=== PATIENT | male | born 1950 | race Caucasian/White ===

== ENCOUNTER 2016-09-16 08:53 | Inpatient (IN) | payer BC ==
[~2016-09-16] VITALS: Ht 182.9 cm; Wt 118.8 kg
[~2016-09-16 08:53] MED LIST changes: -ASPI81TA11 PO; -CANA300T PO; -GLIP10TA6 PO; -HYDR-3580 PO; -JANU50TA8 PO; -ROSU1TAB6 PO; -VITACAP9 PO; -WALKER WHEELS/F1 MIS
[2016-09-16] MEDS ORDERED: ROSU1TAB6 PO (09:37)
[2016-09-16] MEDS ORDERED: JANU50TA8 PO (09:37)
[2016-09-16] MEDS ORDERED: GLIP10TA6 PO (09:37)
[2016-09-16] MEDS ORDERED: CANA300T PO (09:37)
[2016-09-16] MEDS ORDERED: VITACAP9 PO (09:38)
[2016-09-26] MEDS ORDERED: METOPROLOL TARTRATE 25 MG TAB PO PRN (07:15)
[2016-09-26] MEDS ORDERED: INSULIN HUMAN REGULAR 1,000 UNITS/10 ML VIAL SQ PRN (07:15)
[2016-09-26] MEDS ORDERED: SODIUM CHLORID 0.9% 500 ML IV SCH (07:15)
[2016-09-26] MEDS ORDERED: LACTATED RINGER'S 1000 ML IV SCH (07:15)
[2016-09-26] MEDS ORDERED: GENTAMICIN SULFATE 80 MG/2 ML VIAL ONE (07:25)
[2016-09-26] MEDS ORDERED: ceFAZolin 2 GM PREMIX 50 ML ONE (07:25)
[2016-09-26 07:27] VITALS: BP 129/80; PULSE 54; RESP 20; TEMP 97.9; O2SAT 97
[2016-09-26] MEDS ORDERED: CLINDAMYCIN PHOS 900 MG/6 ML VIAL ONE (07:27)
[2016-09-26] MEDS ORDERED: SODIUM CHLORIDE 0.9% INJ 100 ML ONE (07:28)
[2016-09-26] MEDS: TRANEXAMIC ACID INJ 1,000 MG in SODIUM CHLORIDE 0.9% INJ 100 ML IV SCH ×6 (07:30→11:22)
[2016-09-26] MEDS: EXPAREL PERI-ARTICULAR INJECTION (TOTAL VOL. 100 ML) P-ARTICULR SCH ×4 (07:30→08:56)
[2016-09-26] MEDS ORDERED: Post-op Orders (for Pharmacy) MISC XX ONE (07:45)
[2016-09-26] MEDS ORDERED: ceFAZolin 2 GM PREMIX 50 ML IV SCH (07:45)
[2016-09-26] MEDS ORDERED: ONDANSETRON HCL 4 MG/2 ML VIAL IVP PRN (07:45)
[2016-09-26] MEDS ORDERED: TRANEXAMIC ACID INJ 0 MG in SODIUM CHLORIDE 0.9% INJ 100 ML IV SCH (07:45)
[2016-09-26] MEDS ORDERED: SODIUM CHLORIDE 0.9% FLUSH 5 ML FLUSH IVF PRN (07:45)
[2016-09-26] MEDS ORDERED: MAGNESIUM HYDROXIDE SUSP 30 ML CUP PO PRN (07:45)
[2016-09-26] MEDS ORDERED: ZOLPIDEM TARTRATE 5 MG TAB PO PRN (07:45)
[2016-09-26] MEDS ORDERED: CLINDAMYCIN INJ 900 MG in SODIUM CHLORIDE 0.9% INJ 100 ML IV SCH (08:00)
[2016-09-26] MEDS ORDERED: ACETAMINOPHEN 1000 MG/100 ML VIAL IV ONE (08:12)
[2016-09-26] MEDS ORDERED: MIDAZOLAM HCL 2 MG/2 ML VIAL ONE (08:12)
[2016-09-26] MEDS ORDERED: NON-FORMULARY DRUG (Canagliflozin (Invokana) 300 MG) PO SCH (09:00)
[2016-09-26] MEDS ORDERED: NON-FORMULARY DRUG (Sitagliptin-Metformin (Janumet) 1 TAB) PO SCH (09:00)
[2016-09-26] MEDS ORDERED: PROPOFOL 200 MG/20 ML AMP IV ONE (12:00)
[2016-09-26] MEDS ORDERED: LACTATED RINGER'S 1000 ML INJ 1,000 ML IV ONE (12:00)
[2016-09-26] MEDS: LACTATED RINGER'S 1000 ML INJ 1,000 ML IV SCH ×2 (12:34→20:07)
[2016-09-26] MEDS ORDERED: BUPIVACAINE LIPOSOME PF 1.3% 20 ML VIAL ONE (12:36)
[2016-09-26] MEDS ORDERED: DO NOT ADM ANY ANTICOAGULANT DRUGS XX PRN (12:45)
[2016-09-26] MEDS ORDERED: MORPHINE SULFATE 4 MG/ML INJ ONE (12:45)
[2016-09-26] MEDS: SODIUM CHLORIDE 0.9% FLUSH 5 ML FLUSH IVF SCH ×2 (13:00→21:00)
[2016-09-26] MEDS ORDERED: KETOROLAC TROMETHAMINE 30 MG/ML (IVP) VIAL ONE (13:09)
[2016-09-26] MEDS: KETOROLAC TROMETHAMINE 30 MG/ML (IVP) VIAL IVP SCH ×2 (13:09→18:32)
--- NOTE | 2016-09-26 13:36 | RADRPT ---
EXAM DATE/TIME: 09/26/2016 12:45 [place] COMPARISON: No previous studies available for comparison. INDICATIONS : Post op total left knee MEDICAL HISTORY : None. SURGICAL HISTORY : Total left knee ENCOUNTER: Initial ACUITY: 1 day PAIN SCORE: 2/10 LOCATION: Left knee FINDINGS: AP and lateral views of the knee following arthroplasty reveals a prosthesis in anatomic alignment. F racture is not appreciated. Surgical drain is evident CONCLUSION: Status post total knee arthroplasty. Ayad Parson MD FACR Board Certified Radiologist. This report was verified electronically.
[2016-09-26 13:40] VITALS: BP 118/67; PULSE 49; RESP 16; TEMP 97.4; O2SAT 99
[2016-09-26] MEDS: MORPHINE SULFATE 4 MG/ML INJ IV PUSH PRN (13:42)
[2016-09-26 16:18] VITALS: O2SAT 99
[2016-09-26 16:20] VITALS: BP 124/70; PULSE 50; RESP 16; TEMP 97.7; O2SAT 98
[2016-09-26] MEDS: glipiZIDE 10 MG TAB PO SCH (16:44)
[2016-09-26] MEDS: CLINDAMYCIN INJ 900 MG in SODIUM CHLORIDE 0.9% INJ 100 ML IV SCH (16:44)
[2016-09-26] MEDS: ACETAMINOPHEN/HYDROcodone 325 MG/7.5 MG TAB PO PRN ×2 (16:45→21:14)
[2016-09-26] MEDS ORDERED: PT JANUMET PO SCH (18:00)
--- NOTE | 2016-09-26 19:50 | PD.CONS ---
HPI Service [facility] Hospitalists Consult Requested By Dr Carrizales Reason for Consult Medical management Primary Care Physician Savage Hair MD Diagnoses: History of Present Illness This is a 66-year-old male with past medical history significant for diabetes, hyperlipidemia, bilateral knee surgery, osteoarthritis who presents to [facility] for elective left total knee arthroplasty. The patient is status post left total knee arthroplasty performed by Dr. Carrizales. The patient complains of left knee pain which radiates at 7, nonradiating. The patient otherwise denies any chest pain shortness of breath, abdominal pain, nausea, vomiting, diarrhea, fevers, chills, cough. Review of Systems Other As per history of present illness, other systems reviewed by me and negative. Past Family Social History Allergies: Coded Allergies: Fabric Softeners (Verified Allergy, Severe, HIVES, 09/16/16) Iodine (Verified Allergy, Severe, Anaphylaxis, 09/16/16) Penicillin (Verified Allergy, Severe, SOB, 09/16/16) Sulfa (Verified Allergy, Severe, SOB, 09/16/16) Shellfish (Verified Adverse Reaction, Severe, Anaphylaxis, 09/16/16) Uncoded Allergies: HAIR CONDITIONER (Adverse Reaction, Severe, HIVES, 09/16/16) Past Medical History 1. Diabetes type 2. 2. Hyperlipidemia. 3. Hypertriglyceridemia. 4. Osteoarthritis Past Surgical History 1. Bilateral knee surgery - 4 in the left knee and to the right knee. 2. Skull fracture. Reported Medications 1. Janumet [id number] milligrams 1 tab by mouth twice a day. 2. Rosuvastatin 10 mg by mouth at at bedtime been 3. B complex 1 By mouth daily. 4. Canaglifozin 300 mg by mouth daily. 5. Glipizide 10 mg by mouth twice a day before meals Active Ordered Medications Current Medications Medications (Trade) Dose Ordered Sig/Annie Route Start Time Stop Time Status Last Admin Chlorhexidine Gluconate 1 applic 1 applic ONCE TOP 09/26/16 07:30 09/29/16 07:29 Tranexamic Acid 1000 mg/Sodium Chloride 110 ml @ 200 mls/hr ONCE IV 09/26/16 07:30 09/27/16 07:29 09/26/16 08:37 Tranexamic Acid 1000 mg/Sodium Chloride 110 ml @ 200 mls/hr ONCE IV 09/26/16 07:30 09/27/16 07:29 09/26/16 11:22 Bupivacaine Liposome 20 ml/ Sodium Chloride 100 ml @ 200 mls/hr ONCE P-ARTICULR 09/26/16 07:30 09/27/16 07:29 09/26/16 08:56 (Lr 1000 ml Inj) 1,000 ml @ 80 mls/hr [id number] IV 09/26/16 07:37 09/26/16 12:34 (NS Flush) 2 ml UNSCH PRN IVF 09/26/16 07:45 IV Flush 2 ml 2 ml BID IVF 09/26/16 09:00 09/26/16 13:00 (Cleocin Inj/NS Inj) 106 ml @ 200 mls/hr Q8H IV 09/26/16 16:00 09/27/16 08:32 09/26/16 16:44 (Morphine Inj) 4 mg Q3H PRN IV PUSH 09/26/16 07:45 09/26/16 13:42 ([place] 7.5-325 Mg) 1 tab Q4H PRN PO 09/26/16 07:45 ([place] 7.5-325 Mg) 2 tab Q4H PRN PO 09/26/16 07:45 09/26/16 16:45 (Toradol Inj) 15 mg Q6H IVP 09/26/16 13:15 09/28/16 07:16 09/26/16 18:32 (Zofran Inj) 4 mg Q6H PRN IVP 09/26/16 07:45 (Colace) 100 mg BID PO 09/27/16 21:00 (Ambien) 5 mg HS PRN PO 09/26/16 07:45 (Milk Of Magnesia Liq) 30 ml DAILY PRN PO 09/26/16 07:45 (Ecotrin Ec) 81 mg BID PO 09/27/16 09:00 (Glucotrol) 10 mg BIDAC PO 09/26/16 16:00 09/26/16 16:44 Miscellaneous Information ALL NURSING DEPARTME... UNSCH PRN XX 09/26/16 12:45 09/27/16 12:44 (Pneumovax-23 Inj) 25 mcg ONCE ONCE IM 09/27/16 10:00 09/27/16 10:01 (Lipitor) 20 mg HS PO 09/26/16 21:00 Patient Own Medication PT OWN MED: INVOK... DAILY PO 09/27/16 09:00 Future Hold Patient Own Medication PT OWN MED: JANUMET ... BIDPC PO 09/26/16 18:00 Hold Family History Patient's family history significant for breast cancer in the patient's mother. The patient states that his father had diabetes mellitus, and an AR at age 63. Social History Patient states that he has tried quitting smoking many times without success. Last time he has smoked is 2 weeks ago. Denies alcohol use. Denies illicit drug use. The patient is and has children but does not keep in touch with them. Physical Exam Vital Signs Vital Signs Date Time Temp Pulse Resp B/P Pulse Ox O2 Delivery O2 Flow Rate FiO2 09/26/16 16:20 97.7 50 16 124/70 98 09/26/16 16:18 99 Nasal Cannula 2.00 09/26/16 13:40 97.4 49 16 118/67 99 09/26/16 13:00 98.0 52 19 96/60 98 Nasal Cannula 2 09/26/16 12:45 49 20 97/59 98 Nasal Cannula 2 09/26/16 12:30 50 12 98/56 97 Nasal Cannula 2 09/26/16 12:15 54 13 103/64 97 Nasal Cannula 2 09/26/16 12:03 98.1 120 15 102/71 96 Nasal Cannula 2 09/26/16 07:27 97.9 54 20 129/80 97 Physical Exam GENERAL: This is a well-nourished, well-developed patient, in no apparent distress. SKIN: No rashes, ecchymoses or lesions. Cool and dry. HEAD: Atraumatic. Normocephalic. No temporal or scalp tenderness. EYES: Pupils equal round and reactive. Extraocular motions intact. No scleral icterus. No injection or drainage. ENT: Nose without bleeding, purulent drainage or septal hematoma. Throat without erythema, tonsillar hypertrophy or exudate. Uvula midline. Airway patent. NECK: Trachea midline. No JVD or lymphadenopathy. Supple, nontender, no meningeal signs. CARDIOVASCULAR: Regular rate and rhythm without murmurs, gallops, or rubs. RESPIRATORY: Clear to auscultation. Breath sounds equal bilaterally. No wheezes , rales, or rhonchi. GASTROINTESTINAL: Abdomen soft, non-tender, nondistended. No hepato-splenomegaly , or palpable masses. No guarding. MUSCULOSKELETAL: Extremities without clubbing, cyanosis, left knee swollen with decreased range of motion. No calf tenderness. Negative Homans sign bilaterally. NEUROLOGICAL: Awake and alert. Cranial nerves II through XII intact. Motor and sensory grossly within normal limits. Five out of 5 muscle strength in all muscle groups. Normal speech. Laboratory Laboratory Tests Test 09/26/16 07:25 Blood Type O POSITIVE Antibody Screen NEGATIVE Blood Bank Comment Imaging Last Impressions Knee X-Ray 09/26/16 0000 Signed Impressions: Service Date/Time: Monday, September 26, 2016 12:45 - CONCLUSION: Status post total knee arthroplasty. Ayad Parson MD Reviewed by me Assessment and Plan Problem List: (1) Primary osteoarthritis of left knee ICD Code: M17.12 Status: Acute Plan: Continue management and pain control as per orthopedic surgery. (2) Status post total left knee replacement ICD Code: Z96.652 Status: Acute Plan: As above (3) Diabetes ICD Code: E11.9 Status: Acute Plan: Continue Sinemet, glipizide and invokana. Check hemoglobin A1c Monitor Accu-Cheks, switch SSI with regular insulin to SSI with insulin NovoLog as insulin NovoLog has some more predictable effect on Regular Insulin. (4) Hyperlipidemia ICD Code: E78.5 Status: Acute Plan: Continue statin. Check fasting lipid profile. Assessment and Plan DVT prophylaxis: LUCIA stockings. As per orthopedic surgery. Code Status Full code Discussed Condition With Patient, RN Problem Qualifiers (1) Diabetes: Mode Min MD Sep 26, 2016 19:50
[2016-09-26 20:00] VITALS: BP 123/60; PULSE 57; RESP 18; TEMP 96.8; O2SAT 97
[2016-09-26] MEDS ORDERED: NON-FORMULARY DRUG (Rosuvastatin 10 MG) PO SCH (21:00)
[2016-09-26] MEDS: ATORVASTATIN 20 MG TAB PO SCH (21:11)
[2016-09-26] MEDS: PT JANUMET PO SCH (22:03)
[2016-09-27] VITALS (8 sets, daily range): BP systolic 96–115; BP diastolic 56–66; PULSE 54–64; RESP 16–20; TEMP 97–98.6; O2SAT 93–98
[2016-09-27] MEDS: CLINDAMYCIN INJ 900 MG in SODIUM CHLORIDE 0.9% INJ 100 ML IV SCH ×2 (00:59→08:16)
[2016-09-27] MEDS: KETOROLAC TROMETHAMINE 30 MG/ML (IVP) VIAL IVP SCH ×4 (00:59→20:41)
[2016-09-27] MEDS: ACETAMINOPHEN/HYDROcodone 325 MG/7.5 MG TAB PO PRN ×6 (01:28→22:52)
[2016-09-27 06:11] LABS: HEMATOCRIT 38.5 % (39.0-51.0); REVIEW FLAG FINAL
--- NOTE | 2016-09-27 06:29 | PD.ORT.PN ---
Subjective Post Op Day #: 1 Subjective Remarks Nurses report him walking in the [place], walking a full circuit. He is doing well. He has some pain, more today than yesterday. Range of Motion -5 to 91 degrees. Distance Walked 175 feet with PT. Objective Vitals Vital Signs Date Time Temp Pulse Resp B/P Pulse Ox O2 Delivery O2 Flow Rate FiO2 09/27/16 04:00 97.0 56 16 100/59 96 09/27/16 01:25 102/61 09/27/16 00:00 97.5 62 16 96/63 93 09/26/16 20:00 96.8 57 18 123/60 97 09/26/16 16:20 97.7 50 16 124/70 98 09/26/16 16:18 99 Nasal Cannula 2.00 09/26/16 13:40 97.4 49 16 118/67 99 09/26/16 13:00 98.0 52 19 96/60 98 Nasal Cannula 2 09/26/16 12:45 49 20 97/59 98 Nasal Cannula 2 09/26/16 12:30 50 12 98/56 97 Nasal Cannula 2 09/26/16 12:15 54 13 103/64 97 Nasal Cannula 2 09/26/16 12:03 98.1 120 15 102/71 96 Nasal Cannula 2 09/26/16 07:27 97.9 54 20 129/80 97 I/O 09/26/16 09/26/16 09/26/16 09/27/16 09/27/16 09/27/16 07:00 15:00 23:00 07:00 15:00 23:00 Intake Total 1325 ml 827 ml Output Total 205 ml 330 ml Balance 1120 ml 497 ml Intake Oral 25 ml 240 ml IV Total 587 ml Other 1300 ml Output Drainage Total 105 ml 330 ml Estimated Blood Loss 100 ml # Voids 2 # Bowel Movements 0 Result Diagram: 09/27/16 0540 Imaging Last 72 hours Impressions Knee X-Ray 09/26/16 0000 Signed Impressions: Service Date/Time: Monday, September 26, 2016 12:45 - CONCLUSION: Status post total knee arthroplasty. Ayad Parson MD Objective Remarks He is resting comfortably, supine in bed in the [facility]. The original dressing is dry and intact. The neurovascular status is intact. Assessment & Plan Ortho Post Op Day #: 1 Problem List: (1) Status post total left knee replacement Plan: Continue postop care and PT. Assessment and Plan Condition: Good. Orthopaedically stable. DVT prophylaxis: LUCIA stockings, sequentials, mobilization, ASA. Discharge plans: home with [facility], probably tomorrow. Has appointment. Jesse Carrizales MD (Charles) Sep 27, 2016 06:29
[2016-09-27] MEDS: CHLORHEXIDINE GLUCONATE 4% SOLN 120 ML BTL TOP SCH (07:30)
[2016-09-27] MEDS: glipiZIDE 10 MG TAB PO SCH ×2 (07:31→17:44)
[2016-09-27] MEDS: ASPIRIN EC 81 MG TABEC PO SCH ×2 (08:17→20:41)
[2016-09-27] MEDS: PT JANUMET PO SCH ×2 (08:18→17:45)
[2016-09-27] MEDS: SODIUM CHLORIDE 0.9% FLUSH 5 ML FLUSH IVF SCH ×2 (08:19→20:41)
[2016-09-27] MEDS: PT:INVOKANA 300 MG PO SCH (08:19)
[2016-09-27] MEDS: LACTATED RINGER'S 1000 ML INJ 1,000 ML IV SCH ×2 (08:20→21:07)
[2016-09-27] MEDS: MORPHINE SULFATE 4 MG/ML INJ IV PUSH PRN ×3 (08:20→16:10)
[2016-09-27] MEDS ORDERED: PT:INVOKANA 300 MG PO SCH (09:00)
--- NOTE | 2016-09-27 09:59 | HHI.PR ---
Subjective Remarks Patient states that the pain was severe earlier today for which he had to get IV morphine Was reportedly having more drainage from the postsurgical knee and was instructed to keep it in immobilizer with eyes. Denies chest pain or shortness of breath Vital signs stable Objective Vitals Vital Signs Date Time Temp Pulse Resp B/P Pulse Ox O2 Delivery O2 Flow Rate FiO2 09/27/16 08:08 97.9 58 18 113/66 96 09/27/16 04:00 97.0 56 16 100/59 96 09/27/16 01:25 102/61 09/27/16 00:00 97.5 62 16 96/63 93 09/26/16 20:00 96.8 57 18 123/60 97 09/26/16 16:20 97.7 50 16 124/70 98 09/26/16 16:18 99 Nasal Cannula 2.00 09/26/16 13:40 97.4 49 16 118/67 99 09/26/16 13:00 98.0 52 19 96/60 98 Nasal Cannula 2 09/26/16 12:45 49 20 97/59 98 Nasal Cannula 2 09/26/16 12:30 50 12 98/56 97 Nasal Cannula 2 09/26/16 12:15 54 13 103/64 97 Nasal Cannula 2 09/26/16 12:03 98.1 120 15 102/71 96 Nasal Cannula 2 I/O 09/26/16 09/26/16 09/26/16 09/27/16 09/27/16 09/27/16 07:00 15:00 23:00 07:00 15:00 23:00 Intake Total 1325 ml 827 ml 480 ml Output Total 205 ml 330 ml 250 ml 150 ml Balance 1120 ml 497 ml 230 ml -150 ml Intake Oral 25 ml 240 ml 480 ml IV Total 587 ml Other 1300 ml Output Drainage Total 105 ml 330 ml 250 ml 150 ml Estimated Blood Loss 100 ml # Voids 2 1 # Bowel Movements 0 0 Result Diagram: 09/27/16 0540 Imaging Last Impressions Knee X-Ray 09/26/16 0000 Signed Impressions: Service Date/Time: Monday, September 26, 2016 12:45 - CONCLUSION: Status post total knee arthroplasty. Ayad Parson MD Objective Remarks GENERAL: This is a well-nourished, well-developed patient, in no apparent distress. SKIN: No rashes, ecchymoses or lesions. Cool and dry. HEAD: Atraumatic. Normocephalic. No temporal or scalp tenderness. EYES: Pupils equal round and reactive. Extraocular motions intact. No scleral icterus. No injection or drainage. ENT: Nose without bleeding, purulent drainage or septal hematoma. Throat without erythema, tonsillar hypertrophy or exudate. Uvula midline. Airway patent. NECK: Trachea midline. No JVD or lymphadenopathy. Supple, nontender, no meningeal signs. CARDIOVASCULAR: Regular rate and rhythm without murmurs, gallops, or rubs. RESPIRATORY: Clear to auscultation. Breath sounds equal bilaterally. No wheezes , rales, or rhonchi. GASTROINTESTINAL: Abdomen soft, non-tender, nondistended. No hepato-splenomegaly , or palpable masses. No guarding. MUSCULOSKELETAL: Extremities without clubbing, cyanosis, left knee is swollen with bandages clean without drainage and ice packs over the knee. No calf tenderness. NEUROLOGICAL: Awake and alert. Cranial nerves II through XII intact. Motor and sensory grossly within normal limits. Five out of 5 muscle strength in all muscle groups. Normal speech. Procedures Left total knee arthroplasty. Medications and IVs Current Medications Medications (Trade) Dose Ordered Sig/Annie Route Start Time Stop Time Status Last Admin Chlorhexidine Gluconate 1 applic 1 applic ONCE TOP 09/26/16 07:30 09/29/16 07:29 09/27/16 07:30 (Lr 1000 ml Inj) 1,000 ml @ 80 mls/hr [id number] IV 09/26/16 07:37 09/27/16 08:20 (NS Flush) 2 ml UNSCH PRN IVF 09/26/16 07:45 (NS Flush) 2 ml BID IVF 09/26/16 09:00 09/27/16 08:19 (Morphine Inj) 4 mg Q3H PRN IV PUSH 09/26/16 07:45 09/27/16 13:26 ([place] 7.5-325 Mg) 1 tab Q4H PRN PO 09/26/16 07:45 09/27/16 06:16 (Sweetser 7.5-325 Mg) 2 tab Q4H PRN PO 09/26/16 07:45 09/27/16 14:43 (Toradol Inj) 15 mg Q6H IVP 09/26/16 13:15 09/28/16 07:16 09/27/16 13:26 (Zofran Inj) 4 mg Q6H PRN IVP 09/26/16 07:45 (Colace) 100 mg BID PO 09/27/16 21:00 (Ambien) 5 mg HS PRN PO 09/26/16 07:45 09/26/16 22:02 (Milk Of [place] Liq) 30 ml DAILY PRN PO 09/26/16 07:45 (Ecotrin Ec) 81 mg BID PO 09/27/16 09:00 09/27/16 08:17 (Glucotrol) 10 mg BIDAC PO 09/26/16 16:00 09/27/16 07:31 (Lipitor) 20 mg HS PO 09/26/16 21:00 09/26/16 21:11 Patient Own Medication PT OWN MED: INVOK... DAILY PO 09/27/16 09:00 09/27/16 08:19 Patient Own Medication PT OWN MED: JANUMET ... BIDPC PO 09/26/16 21:30 09/27/16 08:18 Urinary Catheter: No Vascular Central Line Catheter: No A/P Problem List: (1) Primary osteoarthritis of left knee ICD Code: M17.12 Status: Acute Plan: Continue management and pain control as per orthopedic surgery. Currently on immobilizer and placed on bed rest by orthopedic surgery. (2) Status post total left knee replacement ICD Code: Z96.652 Status: Acute Plan: As above (3) Diabetes ICD Code: E11.9 Status: Acute Plan: Continue Sinemet, glipizide and invokana. Check hemoglobin A1c Monitor Accu-Cheks, switch SSI with regular insulin to SSI with insulin NovoLog as insulin NovoLog has some more predictable effect on Regular Insulin. Blood sugar seems to be stable. (4) Hyperlipidemia ICD Code: E78.5 Status: Acute Plan: Continue statin. Check fasting lipid profile. Chemoprophylaxis as per orthopedic surgery. Assessment and Plan GI prophylaxis: Add PPI. DVT prophylaxis: SCDs, Discharge Planning As per primary team. Problem Qualifiers (1) Diabetes: Mode Min MD Sep 27, 2016 09:59
[2016-09-27] MEDS ORDERED: PNEUMOCOCCAL POLYVALENT INJ 25 MCG/0.5 ML SYR IM ONE (10:00)
[2016-09-27 11:53] LABS: ALKALINE PHOSPHATASE 68 U/L (45-117); ALT (GPT) 18 U/L (12-78); ANION GAP 8 MEQ/L (5-15); AST (GOT) 11 U/L (15-37); BICARBONATE 29.6 MEQ/L (21.0-32.0); BLOOD UREA NITROGEN 16 MG/DL (7-18); CHLORIDE 99 MEQ/L (98-107); GLOMERULAR FILTRATION RATE 74 ML/MIN (>89); POTASSIUM 4.2 MEQ/L (3.5-5.1); SODIUM (NA) 137 MEQ/L (136-145); TOTAL BILIRUBIN ADULT 0.4 MG/DL (0.2-1.0)
[2016-09-27] MEDS ORDERED: WALKER WHEELS/F1 MIS (13:05)
--- NOTE | 2016-09-27 13:08 | HHI.FF ---
Face to Face Verification Diagnosis: (1) Status post total left knee replacement Physical Therapy Gait training Knee: Total knee, Protocol: Left, Gait training, Full weight bearing Left LE Weight Bearing: WB as tolerated Left LE Range of Motion: Active ROM (AROM, AAROM, PROM, PRE. ROM goal is 0 to 135 degrees.) Nursing Nursing: Dressing changes Dressing Changes: Daily dressing change, Coverderm/Primapore Additional Instructions Remove steristrips on postop day 14. I have seen patient Ayad Yang on 09/27/16. My clinical findings support the need for the requested home health care services because: Ltd mobility - disease progression Limited ability to care for self High risk of falls I certify that my clinical findings support that this patient is homebound because: Post-op weakness Unsteady gait/balance Unsafe to leave home unassisted Jesse Carrizales MD (Charles) Sep 27, 2016 13:08
[2016-09-27] MEDS ORDERED: ASPI81TA11 PO (13:14)
[2016-09-27] MEDS ORDERED: HYDR-3580 PO (13:14)
[2016-09-27 17:47] LABS: HDL CHOLESTEROL 40.6 MG/DL (40.0-60.0); LDL CHOLESTEROL 25 MG/DL (0-99)
[2016-09-27] MEDS: DOCUSATE SODIUM 100 MG CAP PO SCH (20:41)
[2016-09-27] MEDS: ATORVASTATIN 20 MG TAB PO SCH (20:41)
[2016-09-27 22:27] LABS: HEMOGLOBIN A1a 1.1 %; HEMOGLOBIN A1b 2.2 %; HEMOGLOBIN Ao 82.3 %; HEMOGLOBIN LA1C 2.4 %; HEMOGLOBIN P3 4.4 %
[2016-09-28 00:07] VITALS: BP 103/62; PULSE 55; RESP 17; TEMP 97; O2SAT 97
[2016-09-28] MEDS: KETOROLAC TROMETHAMINE 30 MG/ML (IVP) VIAL IVP SCH ×2 (00:43→07:15)
[2016-09-28 04:04] VITALS: BP 107/57; PULSE 54; RESP 17; TEMP 97.1; O2SAT 97
[2016-09-28] MEDS: ACETAMINOPHEN/HYDROcodone 325 MG/7.5 MG TAB PO PRN ×3 (04:16→12:20)
[2016-09-28] MEDS: glipiZIDE 10 MG TAB PO SCH (07:00)
[2016-09-28] MEDS: CHLORHEXIDINE GLUCONATE 4% SOLN 120 ML BTL TOP SCH (07:30)
[2016-09-28 07:34] LABS: HEMATOCRIT 37.2 % (39.0-51.0); REVIEW FLAG FINAL
--- NOTE | 2016-09-28 07:39 | PD.ORT.PN ---
Subjective Post Op Day #: 2 Subjective Remarks Nurses report him walking in the [place]. He is doing well. He has somewhat less pain. Range of Motion -5 to 95 degrees. Distance Walked Ambulates independently in the halls. Objective Vitals Vital Signs Date Time Temp Pulse Resp B/P Pulse Ox O2 Delivery O2 Flow Rate FiO2 09/28/16 04:04 97.1 54 17 107/57 97 09/28/16 00:07 97.0 55 17 103/62 97 09/27/16 20:05 97.4 54 18 104/58 98 09/27/16 16:35 98.6 58 16 106/56 95 09/27/16 12:00 97.4 64 20 115/59 94 09/27/16 08:30 94 21 09/27/16 08:08 97.9 58 18 113/66 96 I/O 09/27/16 09/27/16 09/27/16 09/28/16 09/28/16 09/28/16 07:00 15:00 23:00 07:00 15:00 23:00 Intake Total 480 ml 480 ml 600 ml 480 ml Output Total 250 ml 250 ml 105 ml Balance 230 ml 230 ml 495 ml 480 ml Intake Oral 480 ml 480 ml 600 ml 480 ml Output Drainage Total 250 ml 250 ml 105 ml # Voids 1 6 3 4 # Bowel Movements 0 0 1 1 Result Diagram: 09/27/16 0540 09/27/16 1055 Imaging Last 72 hours Impressions Knee X-Ray 09/26/16 0000 Signed Impressions: Service Date/Time: Monday, September 26, 2016 12:45 - CONCLUSION: Status post total knee arthroplasty. Ayad Parson MD Objective Remarks He is resting comfortably, supine in bed, in the [facility]. The dressing is dry and intact. The drain site was reenforced. There is no erythema or induration. The neurovascular status is intact. Assessment & Plan Ortho Post Op Day #: 2 Problem List: (1) Status post total left knee replacement Plan: Continue postop care and PT. Assessment and Plan Condition: Good. Orthopaedically stable. DVT prophylaxis: LUCIA stockings, sequentials, mobilization, ASA. Discharge plans: home with [facility] today. Has appointment. Rx: [place] 7.5/325 Jesse Carrizales MD (Charles) Sep 28, 2016 07:39
[2016-09-28 08:00] VITALS: BP 99/55; PULSE 54; RESP 16; TEMP 98.1; O2SAT 96
[2016-09-28] MEDS: ASPIRIN EC 81 MG TABEC PO SCH (08:25)
[2016-09-28] MEDS: DOCUSATE SODIUM 100 MG CAP PO SCH (08:26)
[2016-09-28] MEDS: SODIUM CHLORIDE 0.9% FLUSH 5 ML FLUSH IVF SCH (09:00)
[2016-09-28] MEDS: LACTATED RINGER'S 1000 ML INJ 1,000 ML IV SCH (09:37)
[2016-09-28] MEDS: PT JANUMET PO SCH (11:26)
[2016-09-28] MEDS: PT:INVOKANA 300 MG PO SCH (11:26)
[2016-09-28 11:35] VITALS: O2SAT 96
[2016-09-28 12:00] VITALS: BP 119/65; PULSE 52; RESP 17; TEMP 98.2; O2SAT 96
--- NOTE | 2016-09-28 16:20 | OTSOAPIP ---
TIME SESSION COMPLETED: 1300 TREATMENT TIME: 0 MINS. CHART REVIEWED. ATTEMPTED TO SEE IN AM AND PT IN BATHROOM. RETURNED IN PM AND PT WAS ALREADY DISCHARGED. Therapist: SUZANNE RAMÍREZ OT/L Signature on file
--- NOTE | 2016-09-29 13:37 | MP ---
cc: Amna HERNANDES. DATE OF SURGERY 09/26/2016 PREOPERATIVE DIAGNOSIS Primary osteoarthritis left knee POSTOPERATIVE DIAGNOSIS Primary osteoarthritis left knee with Uzma-Stieda syndrome OPERATION PERFORMED Left total knee arthroplasty with [place] Triathlon prosthesis and debridement osteophytes medial femoral condyle and medial collateral ligament femoral attachment (Uzma-Stieda syndrome). SURGEON Patricia Hernandes MD ANESTHESIA Spinal with supplemental adductor canal block and local. INDICATIONS AND FINDINGS This 66-year-old man has had longstanding arthritis in his left knee subsequent to multiple injuries with sports and work. He has had four operations on the knee in the past. He has had progressive worsening of his condition such that his ambulation tolerance is one block. He has difficulty with stairs and chairs. He has swelling and crepitation. He has occasional giving-way. Treatment has included anti-inflammatory agents, analgesics, activity modification, exercise, intra-articular corticosteroids and ambulatory aids. He has not responded to these methods. Physical findings showed a well-healed medial incisional scar overlying the medial femoral condyle area. In addition, there is a large palpable osseous density in this area with there being medial laxity and crepitation throughout the entire range of motion. X-rays showed loss of articular cartilage to [id number] with eburnation in the medial compartment. There is patellofemoral medial and lateral osteophytes. There is also obvious Uzma-Stieda syndrome evident in the medial femoral condyle with some changes that appeared to be a loose body. OPERATIVE FINDINGS Showed severe arthritis in the medial compartment particularly, but also in the lateral and patellofemoral compartments. There were osteophytes with loss of articular cartilage and bone, eburnation particularly in the medial compartment. In the medial femoral condyle, there was ossific densities of multiple sizes within the ligament itself. The prosthesis used was a [place] Triathlon prosthesis size 6 right femur Press-Fit cruciate-retaining, the tibia being a size 6 baseplate of Tritanium with a 9 mm cruciate-retaining spacer of X3 polyethylene. The patella was a size 38 mm Tritanium backed patella. PROCEDURE The patient had an adductor canal block carried out preoperatively. He was brought to the clean-air operating suite where a spinal anesthetic was administered. He was then positioned in a supine position with a bolster under the left hip. A Pneumatic tourniquet was applied to the left thigh. The limb was then prepped with alcohol, Hibiclens, and Chloraprep and draped in the usual manner with the knee draped free. An appropriate time-out procedure was carried out. Local anesthesia was administered into the incision site prior to making the incision. An anterior incision was then made from about 3 fingerbreadths above the superior pole of the patella angling down to just the medial side of the tibial tubercle. The incision was deepened through subcutaneous tissues to the retinacular structures which were exposed medially and laterally. A medial retinacular incision was made from the superior medial pole of the patella down to the tibial tubercle and up into the quadriceps and splitting it longitudinally in the medial one-third. The patella was then reflected laterally. Medial and lateral dissection was carried out. The infrapatellar fat pad was debulked. The posterior surface of patella was excised with the oscillating saw taking care to prevent injury to associated structures. A patella protector was positioned in place. Attention was then directed to the medial femoral condyle where the Uzma-Stieda lesions were identified. The loose fragments were debrided and were found to be of varying size up to 1.5 centimeters in diameter. The integrity of the medial collateral ligament remained intact. Medial and lateral dissection was carried out. The anterior cruciate ligament remnants were resected. A fenestration was made in the distal end of the femur and proximal tibia for intramedullary referencing guides. The distal femoral cutting guide and jig were then assembled for a 5 degrees 8-mm cut after placement of the flexible taylor for the intramedullary device into the femur. A cutting block was stabilized with pins. The jig was removed. The distal femoral cut was completed with the oscillating saw. Osteophytes were trimmed from the femur. The sizing guide was then positioned along white size line and the epicondylar axis. This was stabilized with pins. The size was determined to be a size 6. The for-in-one cutting block was then positioned in place and the anterior and posterior cuts were made followed by the posterior and anterior chamfer cuts. After completion of debridement of the osteophytes, attention was then directed to the tibia. Medial and lateral meniscectomies were completed. The intramedullary referencing guide would not pass adequately, therefore the extramedullary guide was used. This guide was then positioned for alignment. The cutting block was then positioned in place and stabilized with pins. The jig was removed. The depth of the cut was verified. The cutting block was positioned in place and stabilized with pins. The proximal tibial cut was then completed with the oscillating saw taking care to prevent injury to neurovascular and ligamentous structures. The spacer block was then used to verify that this was an appropriate cut. The cutting block was removed. Exparel was injected throughout the knee at this time. The tibial baseplate trial was positioned in place for a size 6 baseplate. The size 7 baseplate trial showed that the anterior sagittal plane length was not large enough for a size 7. A size 6 was appropriate. With the size 6 femoral trial positioned, the knee was brought to extension. The tibial baseplate was stabilized with pins. Patella drill holes were then made followed by placement of the trial patella for a size 38 patella. Range of motion was 0 degrees extension to 150 degrees of flexion with excellent stability in flexion and extension. The femoral drill holes were removed. The patella trial and femoral trial were removed. The tibial spacer was removed. The fenestrations in the tibia and femur were filled with bone plugs. The tibial punch was impacted through its guide. This was then removed. The tibial trial was removed. The tibial drill guide was positioned in place and drill holes made. This was likewise removed. The drill was then used for making further fenestration in the medial tibia. Following this, an injection of more local, the tibia baseplate trial was impacted into place and seated appropriately. A 9 mm spacer was then inserted. The femur was then impacted into place followed by the patella which was seated appropriately as well. The drains were brought out the superolateral aspect of the suprapatellar pouch. Wound closure then commenced using 0 Vicryl interrupted [id number] sutures for the retinacular structures, 2-0 Vicryl interrupted simple sutures with buried knots for the subcutaneous tissues and 4-0 Monocryl continuous subcuticular closure for the skin. The wound was then dressed with Steri-Strips followed by a dry dressing, sterile Sof-Rol, cooling pad, further sterile Sof-Rol and Juan bandage from the base the toes to midthigh. The patient was transferred from the operating room to the recovery room in satisfactory condition having tolerated the procedure well. Counts were correct. Specimens, none. ESTIMATED BLOOD LOSS 150 mL CMD NIECY Norris/MARIA ELENA /12:04 PM /1:16 PM
== END 2016-09-28 12:30 | disposition home health service (06) | DRG 470 ==
LOC: HSDI 09-26 06:59 → N06B 09-26 13:26
PROVIDERS: ADMIT Orthopaedic Surgery; ATTEND Orthopaedic Surgery
PROC: 0QBC0ZZ Excision of Left Lower Femur, Open Approach (ICD-10-PCS; 2016-09-26)
PROC: 0SRD0JA Replacement of Left Knee Joint with Synthetic Substitute, Uncemented, Open Approach (ICD-10-PCS; principal; 2016-09-26 08:13)
DX: M17.12 Unilateral primary osteoarthritis, left knee (principal); M76.42 Tibial collateral bursitis [Pellegrini-Stieda], left leg; E11.9 Type 2 diabetes mellitus without complications; Z79.84 Long term (current) use of oral hypoglycemic drugs; Z83.3 Family history of diabetes mellitus; F17.210 Nicotine dependence, cigarettes, uncomplicated; E78.5 Hyperlipidemia, unspecified; Z23 Encounter for immunization
CPT/HCPCS: 73560; 80053; 80061; 82948; 83036; 85014; 85018; 86850; 86900; 86901; 90732; 94150; C1776; C9290; J0131; J0690; J1580; J1885; J2250; J2270; J3010; J7120

== ENCOUNTER → 2016-09-16 | Outpatient (CLI) | payer BC ==
[~2016-09-16] MED LIST: ASPI81TA11 PO; CANA100T PO; CANA300T PO; CRES20TA PO; EPIP0.3I IM; GLIP10TA6 PO; GLUC10TA3 PO; HYDR-3580 PO; JANU50TA8 PO; JANU50TA9 PO; PRED20 PO; ROSU1TAB6 PO; VITACAP9 PO; WALKER WHEELS/F1 MIS
[2016-09-16 09:40] LABS: APTT (PATIENT) 28.2 SEC (24.3-30.1); PROTHROMBIN TIME - PATIENT 10.7 SEC (9.8-11.6)
[2016-09-16 09:42] LABS: HEMATOCRIT 47.3 % (39.0-51.0); MEAN CELL VOLUME 85.1 FL (80.0-100.0); MEAN CORPUSCULAR HEMOGLOBIN 28.8 PG (27.0-34.0); MEAN CORPUSCULAR HGB CONC 33.9 % (32.0-36.0); PLATELET COUNT 175 TH/MM3 (150-450); RED BLOOD COUNT 5.55 MIL/MM3 (4.50-5.90); RED CELL DISTRIBUTION WIDTH 14.6 % (11.6-17.2); REVIEW FLAG FINAL
[2016-09-16 10:03] LABS: BICARBONATE 30.7 MEQ/L (21.0-32.0); POTASSIUM 4.4 MEQ/L (3.5-5.1)
[2016-09-16 10:06] LABS: BLOOD, URINE NEG (NEG); GLUCOSE,URINE 1000 mg/dL (NEG); KETONE, URINE NEG (NEG); NITRITE,URINE NEG (NEG); SQUAMOUS EPITHELIAL CELL URINE <1 /hpf (0-5); URINE COLOR YELLOW (YELLW/STRAW)
[2016-09-16 10:09] LABS: COMMENT (UR) CULT NOT INDICATED; CULTURE IF INDICATED CULT NOT INDICATED
== END ==
LOC: CPRE 08:50
PROVIDERS: ATTEND Orthopaedic Surgery
DX: M17.12 Unilateral primary osteoarthritis, left knee (principal); M79.609 Pain in unspecified limb; Z01.812 Encounter for preprocedural laboratory examination
CPT/HCPCS: 36415; 80048; 81001; 85027; 85610; 85730